=== PATIENT | female | born 1980 | race African-American/Black ===

== ENCOUNTER 2017-02-11 17:05 | Emergency (ER) | payer OTHER ==
[~2017-02-11] VITALS: Ht 165.1 cm; Wt 88.0 kg
--- NOTE | ~2017-02-11 | US85 ---
[facility] A Service of [facility] RADIOLOGY TEXT RESULTS PATIENT: SAMY WALTON LOCATION: [facility] : [birth year] UNIT #: [id number] AGE: [address]: Guero Horton MD SEX: F ORDER DR: [id number] [facility] [address] [place] [address] [place], [place] [address] [id number] E MR#: [id number] Acc #: [id number] NAME: SAMY WALTON : 1980 SEX: F STUDY DATE/TIME: 02/11/2017 19:56 UNIT: [facility] ROOM: STUDY DESCRIPTION: [employer] or [facility] Attending Physician: Guero Horton M.D. Ordering Physician: Gureo Horton M.D. Primary Care Physician: Primary Care Physician No MEDICAL IMAGING REPORT This report is preliminary unless electronic signature is present EXAM Right lower extremity venous duplex 02/11/2017 HISTORY Right lower extremity pain, right hip and leg pain for 1 week with right lower extremity edema. Evaluate for deep vein thrombosis. FINDINGS TECHNIQUE Venous ultrasound examination of the right lower extremity was performed using grayscale, spectral Doppler and color flow Doppler imaging. FINDINGS The examination is negative. There is no evidence of right lower extremity deep venous thrombus from the groin to the lower calf. Visualized greater saphenous vein is also patent. IMPRESSION Negative examination. No evidence of right lower extremity deep venous thrombosis. Dictated by... Christiano Mueller M.D. THIS IS AN ELECTRONICALLY VERIFIED REPORT Christiano Mueller M.D. at 02/12/2017 2:19 PM KRT/lb TD: 02/12/2017 12:05 JOB #: [id number] MEDICAL IMAGING REPORT [facility] A Service [facility] RADIOLOGY TEXT RESULTS PATIENT: SAMY WALTON LOCATION: [facility] : 78 UNIT #: [id number] AGE: [address]: Guero Horton MD SEX: F ORDER DR: Page 1 of 1 COPY
--- NOTE | ~2017-02-11 | CR181 ---
[facility] A Service of [facility] RADIOLOGY TEXT RESULTS PATIENT: SAMY WALTON LOCATION: [facility] : [birth year] UNIT #: [id number] AGE: [address]: Guero Horton MD SEX: F ORDER DR: [id number] [facility] [address] [place], [place] [address] [id number] E MR#: [id number] Acc #: [id number] NAME: SAMY WALTON : 1980 SEX: F STUDY DATE/TIME: 02/11/2017 20:24 UNIT: [facility] ROOM: STUDY DESCRIPTION: CR Lumbar Spine 2 or 3 Views Attending Physician: Guero Horton M.D. Ordering Physician: Guero Horton M.D. Primary Care Physician: Primary Care Physician No MEDICAL IMAGING REPORT This report is preliminary unless electronic signature is present EXAM Lumbar spine series dated 02/11/2017 COMPARISON None. HISTORY Low back pain which radiates down the right hip and leg for a week. It is worse over time. FINDINGS Three views of the lumbar spine were obtained. Vertebral body heights and alignment are preserved. Pedicles, spinous process and transverse process are intact. Intervertebral disc heights are within normal limits. Mild arthritic changes are noted in bilateral L5-S1 facet joints. Pre and paravertebral soft tissues are unremarkable. There is mild stool burden in the colon. IMPRESSION 1. No acute displaced fracture or subluxation. 2. There are probably mild bilateral facet arthritic changes at L5-S1. Dictated by... Anayeli Barrett M.D. THIS IS AN ELECTRONICALLY VERIFIED REPORT Anayeli Barrett M.D. at 02/12/2017 10:01 PM CPR/rnr [facility] A Service [facility] RADIOLOGY TEXT RESULTS PATIENT: SAMY WALTON LOCATION: [facility] : [birth year] UNIT #: [id number] AGE: [address]: Guero Horton MD SEX: F ORDER DR: TD: 02/12/2017 12:49 JOB #: [id number] MEDICAL IMAGING REPORT Page 1 of 1 COPY
[~2017-02-11 17:05] MED LIST: CIPRO PO; DIFLUCAN PO; IBUPROFEN800 MG PO; ULTRAM PO
[2017-02-11 19:46] LABS: URINE SOURCE CLEAN CATCH
[2017-02-11 19:55] LABS: URINE APPEARANCE CLEAR; URINE BILIRUBIN NEG (NEG); URINE BLOOD NEG (NEG); URINE COLOR YELLOW; URINE GLUCOSE NEG (NEG); URINE KETONE NEG (NEG); URINE LEUKOCYTE ESTERASE TRACE (NEG); URINE NITRATE NEG (NEG); URINE PH 6.5 (5-8); URINE PROTEIN NEG (NEG); URINE SPECIFIC GRAVITY 1.026 (1.003-1.035)
[2017-02-11 19:58] LABS: CULTURE INDICATED? YES; URBCS1 AUWI 0-2 /[HPF] (0-2); URINE BACTERIA AUWI 2+ (NEGATIVE); URINE SQUAMOUS EPITHELIAL CELL MOD /[HPF]
== END 2017-02-11 21:47 | disposition home or self-care (01) ==
LOC: CED 17:05
PROVIDERS: Emergency Medicine
DX: M79.651 Pain in right thigh (principal); I10 Essential (primary) hypertension; Z98.51 Tubal ligation status; F17.210 Nicotine dependence, cigarettes, uncomplicated; Z88.0 Allergy status to penicillin
CPT/HCPCS: 72100; 81003; 87086; 93971; 99284